=== PATIENT | female | born 1960 | race Caucasian/White ===

== ENCOUNTER 2025-01-15 13:40 | Outpatient (CLI) | payer MEDICARE, SELFPAY ==
[2025-01-16 14:02] LABS: Hematocrit 39.6 % (37-47); Hemoglobin 13.1 g/dL (12.0-15.0); Immature Granulocytes Count 0.030 X10^3/uL (0.0-0.0); Mean Corp Hgb Conc 33.1 g/dL (32-36); Mean Corpuscular Volume 92.3 fL (81-99); Mean Platelet Vol. 11.7 fl (6.2-12.0); NRBC Flagged by Analyzer 0 % (0-5); Platelet Count 245 K/mm3 (150-450); RBC Distribution Width CV 13.1 % (11.6-14.6); RBC Distribution Width SD 43.9 fl (35.1-43.9); Red Blood Count 4.29 M/mm3 (4.2-5.4); White Blood Count 6.8 K/mm3 (4.4-11.0)
[2025-01-16 14:40] LABS: AST(SGOT) 37 U/L (<=31); Alanine Aminotransfer ALT/SGPT 41 U/L (<=34); Albumin, Serum 4.7 g/dL (3.4-4.8); Alkaline Phosphatase 93 U/L (35-104); Anion Gap 11 (5-15); BUN 17 mg/dL (4-19); BUN/Creat Ratio 24.4 RATIO (10-20); Calcium,Total 10.0 mg/dL (7.6-11.0); Carbon Dioxide 25.9 mmol/L (21.0-32.0); Chloride 103 mmol/L (98-108); Cholesterol 143 mg/dL (<=200); Globulin 2.6 g/dL (2.2-4.2); Glucose 92 mg/dL (70-99); Low Density Lipoprotein Calc. 58 mg/dL; Potassium 4.3 mmol/L (3.3-5.1); Triglycerides 123 mg/dL; Very Low Density Lipoprotein 25 mg/dL (5-40); cholesterol:hdl ratio screen 2.25
[2025-01-16 15:08] LABS: Iron 109 ug/dL (50-170)
[2025-01-16 15:16] LABS: Ferritin 172 ng/mL (22-378); Vitamin B12 948 pg/mL (180-914); Vitamin D,25 Hydroxy 60.4 ng/mL (30-100)
[2025-01-16 15:24] LABS: FOLATES,SERUM (FOLIC ACID) > 40.00 ng/mL (4.60-34.80)
[2025-01-18 04:07] LABS: PROGESTERONE 0.1 ng/mL (.)
[2025-01-21 15:08] LABS: Red Blood Cell Count Test/G6PD 4.26 x10E6/uL (3.77-5.28)
== END 2025-01-15 23:59 | disposition home or self-care (01) ==
PROVIDERS: Referring Provider Nurse Practitioner Family; Visit Provider Nurse Practitioner Family
DX: I49.9 Cardiac arrhythmia, unspecified (principal); R53.83 Other fatigue; R06.00 Dyspnea, unspecified; R41.89 Other symptoms and signs involving cognitive functions and awareness; R21 Rash and other nonspecific skin eruption; M79.18 Myalgia, other site; Z13.1 Encounter for screening for diabetes mellitus; E55.9 Vitamin D deficiency, unspecified; E78.5 Hyperlipidemia, unspecified
CPT/HCPCS: 80053; 80061; 82306; 82607; 82627; 82670; 82728; 82746; 82955; 83036; 83540; 84144; 84403; 85025; 82626

== ENCOUNTER → 2025-03-13 | Outpatient (CLI) | payer MEDICARE, SELFPAY ==
[2025-03-13 13:38] LABS: Iron 70 ug/dL (50-170); Iron Binding Capacity,Total 352 ug/dL (250-450); Iron Binding Capacity,Unsat 282 ug/dL (228-428)
[2025-03-13 16:26] LABS: Ferritin 189 ng/mL (22-378)
== END | disposition home or self-care (01) ==
PROVIDERS: Referring Provider Nurse Practitioner Family; Visit Provider Nurse Practitioner Family
DX: E28.8 Other ovarian dysfunction (principal); M79.18 Myalgia, other site; I49.9 Cardiac arrhythmia, unspecified; R53.83 Other fatigue; R06.00 Dyspnea, unspecified; G89.29 Other chronic pain; A44.0 Systemic bartonellosis
CPT/HCPCS: 82670; 82728; 83540; 83550; 84403